=== PATIENT | male | born 1990 | race Caucasian/White ===

== ENCOUNTER 2019-01-18 07:06 | Emergency (ER) | payer BC, MEDICAID, OTHER ==
[2019-01-18 07:27] VITALS: BP 141/84
--- NOTE | 2019-01-18 07:29 | UC ---
Ear Complaint HPI - HPI Summary HPI Summary: WAS CLEANING HIS EARS THIS MORNING WITH A COTTON SWAB. WHEN HE TOOK IT OUT OF HIS EAR THE COTTON TIP WAS MISSING. THINKS IT IS INSIDE HIS LEFT EAR CANAL. NO PAIN. NO HEARING LOSS. - History of Current Complaint Chief Complaint: UCEar Stated Complaint: LEFT EAR FOREIGN BODY Time Seen by Provider: 01/18/19 07:28 Hx Obtained From: Patient Onset/Duration: Sudden Onset, Lasting Hours, Still Present Severity Initially: Mild Severity Currently: Mild Pain Intensity: 0 Pain Scale Used: 0-10 Numeric Aggravating Factors: Nothing Alleviating Factors: Nothing Associated Signs/Symptoms: Positive: Foreign Body Sensation. Negative: Discharge, Hearing Loss, URI Symptoms - Allergies/Home Medications Allergies/Adverse Reactions: Allergies Allergy/AdvReac Type Severity Reaction Status Date / Time No Known Allergies Allergy Verified 01/18/19 07:25 Home Medications: Home Medications Fluticasone-Salmeterol 250-50* [Advair Diskus 250-50*] 1 puff INH BID 01/18/19 [ History Confirmed 01/18/19] PMH/Surg Hx/FS Hx/Imm Hx Respiratory History: Asthma - Surgical History Surgical History: None - Family History Known Family History: Positive: Non-Contributory - Social History Alcohol Use: Occasionally Substance Use Type: None Smoking Status (MU): Never Smoked Tobacco Review of Systems All Other Systems Reviewed And Are Negative: Yes Constitutional: Positive: Negative ENT: Positive: Other - FB? Respiratory: Positive: Negative Cardiovascular: Positive: Negative Gastrointestinal: Positive: Negative Physical Exam Triage Information Reviewed: Yes Appearance: Well-Appearing, No Pain Distress, Well-Nourished Vital Signs: Initial Vital Signs Temp 97.7 F 01/18/19 07:24 Pulse 63 01/18/19 07:24 Resp 14 01/18/19 07:24 BP 141/84 01/18/19 07:24 Pulse Ox 98 01/18/19 07:24 Vital Signs Reviewed: Yes Eyes: Positive: Conjunctiva Clear ENT: Positive: Hearing grossly normal, Pharynx normal, TMs normal - NO FB IN EITHER EAR CANAL Neck: Positive: Supple Respiratory: Positive: No respiratory distress, No accessory muscle use Cardiovascular: Positive: Pulses Normal Abdomen Description: Positive: Soft Musculoskeletal: Positive: No Edema Neurological: Positive: Alert Psychological: Positive: Age Appropriate Behavior Skin: Negative: Rashes Ear Complaint Course/Dx - Course Course Of Treatment: NO FB IN EITHER EAR CANAL. COTTON TIP LIKELY FELL ON TO FLOOR. TM AND EAR CANALS LOOK GOOD. NO ACUTE INTERVENTION. - Differential Dx/Diagnosis Provider Diagnosis: Normal ear exam Discharge - Sign-Out/Discharge Documenting (check all that apply): Patient Departure All imaging exams completed and their final reports reviewed: No Studies - Discharge Plan Condition: Stable Disposition: HOME Forms: *Work Release Referrals: James Ibrahim PA [Primary Care Provider] - If Needed Additional Instructions: NO FOREIGN BODY IN YOUR EAR ON EXAM TODAY. YOUR EAR DRUM AND EAR CANAL LOOK GOOD. NO ACUTE INTERVENTION INDICATED. - Billing Disposition and Condition Condition: STABLE Disposition: Home
== END 2019-01-18 07:37 | disposition home or self-care (01) ==
LOC: UCCORT 07:06
DX: Z03.89 Encounter for observation for other suspected diseases and conditions ruled out (principal)
CPT/HCPCS: 99211; G0463